=== PATIENT | female | born 2000 | race Two or more races ===

== ENCOUNTER 2019-03-22 12:53 | Observation (INO) | payer SELFPAY ==
[2019-03-22 14:21] LABS: BILIRUBIN,URINE NEGATIVE (NEG); CLARITY,URINE CLEAR; COLOR,URINE YELLOW; NITRITE,URINE NEGATIVE (NEG); PH,URINE 6.5; PROTEIN,URINE NEGATIVE (NEG-TRACE); UROBILINOGEN,URINE 0.2 mg/dL (0.2 mg/dL)
[2019-03-22 14:27] LABS: BACTERIA,URINE FEW /HPF (0-FEW); RBC,URINE 0 /HPF (0-2); SQUAMOUS EPITHELIAL CELL,UR MOD /LPF
== END 2019-03-22 17:37 | disposition home or self-care (01) ==
LOC: 3 SO LND 12:53
PROVIDERS: ADMIT Obstetrics & Gynecology; ATTEND Obstetrics & Gynecology
DX: O26.893 Other specified pregnancy related conditions, third trimester (principal); R10.2 Pelvic and perineal pain; Z3A.39 39 weeks gestation of pregnancy
CPT/HCPCS: 81001; 87086; G0378; G0379

== ENCOUNTER 2019-03-28 18:15 | Inpatient (IN) | payer SELFPAY ==
[~2019-03-28] VITALS: Ht 157.5 cm; Wt 72.6 kg
[2019-03-28] MEDS ORDERED: LIDOCAINE 1% PF 30 ML VIAL. INJ PRN (18:30)
[2019-03-28] MEDS ORDERED: ACETAMINOPHEN 325 MG TABLET. PO PRN (18:30)
[2019-03-28] MEDS ORDERED: IBUPROFEN 400 MG TABLET. PO PRN (18:30)
[2019-03-28] MEDS ORDERED: ONDANSETRON PF 4 MG/2 ML VIAL. IV PRN (18:30)
[2019-03-28] MEDS ORDERED: TERBUTALINE 1 MG/ML VIAL. IV PRN (18:30)
[2019-03-28] MEDS ORDERED: OXYTOCIN 30 UNIT/500 ML PREMIX 500 ML IV PRN ×3 (18:30)
[2019-03-28] MEDS ORDERED: MAG HYDROX/ALUMINUM HYD/SIMETH 30 ML ORAL.SUSP PO PRN (18:30)
[2019-03-28] MEDS ORDERED: fentaNYL PF VIAL 100 MCG/2 ML VIAL IV PRN ×8 (18:30)
[2019-03-28] MEDS ORDERED: BUTORPHANOL 2 MG/ML VIAL. IV PRN ×2 (18:30)
[2019-03-28] MEDS ORDERED: NALBUPHINE 10 MG/ML AMPUL. IV PRN ×2 (18:30)
[2019-03-28] MEDS ORDERED: 0.9 % SODIUM CHLORIDE 10 ML DISP.SYRIN. IV PRN (18:30)
[2019-03-28] MEDS ORDERED: TERBUTALINE 1 MG/ML VIAL. SQ PRN (18:30)
[2019-03-28] MEDS ORDERED: CITRIC ACID/SODIUM CITRATE 30 ML SOLUTION. PO PRN (18:30)
[2019-03-28] MEDS ORDERED: ZOLPIDEM 5 MG TABLET. PO PRN (18:30)
[2019-03-28 18:46] LABS: BILIRUBIN,URINE NEGATIVE (NEG); CLARITY,URINE CLEAR; COLOR,URINE YELLOW; NITRITE,URINE NEGATIVE (NEG); PH,URINE 5.5; PROTEIN,URINE NEGATIVE (NEG-TRACE); UROBILINOGEN,URINE 0.2 mg/dL (0.2 mg/dL)
[2019-03-28 18:50] LABS: BACTERIA,URINE FEW /HPF (0-FEW); RBC,URINE OCC /HPF (0-2); SQUAMOUS EPITHELIAL CELL,UR MOD /LPF; WBC,URINE OCC /HPF (0-4)
[2019-03-28] MEDS ORDERED: DINOPROSTONE 10 MG SUPP.VAG VG ONE (19:00)
[2019-03-28] MEDS ORDERED: IV NORMAL SALINE 1000ML BAG 1,000 ML IV SCH (19:00)
[2019-03-28] MEDS: IV RINGERS,LACTATED 1000ML 1,000 ML IV SCH ×2 (19:33→22:43)
[2019-03-28 19:54] LABS: BASO % 0 % (0-3); EOS % 1 % (0-3); HEMATOCRIT 30.9 % (36.0-47.0); HEMOGLOBIN 10.3 g/dL (12.0-15.5); LYMPH # 1.8 x10^3/uL (1.0-4.8); LYMPH % 24 % (24-48); MEAN CORPUSCULAR HEMOGLOBIN 28 pg (25-35); MEAN CORPUSCULAR HGB CONC 33 g/dL (31-37); MEAN CORPUSCULAR VOLUME 84 fL (79-100); MONO # 0.7 x10^3/uL (0.0-1.1); MONO % 9 % (0-9); NEUT % 66 % (31-73); PLATELET COUNT 224 x10^3/uL (140-400); RED BLOOD COUNT 3.68 x10^6/uL (3.50-5.40); RED CELL DISTRIBUTION WIDTH 15.8 % (11.5-14.5); WHITE BLOOD COUNT 7.5 x10^3/uL (4.0-11.0)
[2019-03-28 20:29] VITALS: BP 130/74
[2019-03-28] MEDS ORDERED: diphenhydrAMINE HCL 25 MG CAPSULE PO PRN (20:45)
--- NOTE | 2019-03-29 02:10 | PDOC1 ---
OB - History Hx of Present Care: Good Care Ultrasounds: Normal mid trimester US Obstetrical Complications: None Medical Complications: None Past Family/Social History * Past Medical, Surgical, Family and Obstetric Histories reviewed from chart. Rubella: Immune RPR/VDRL: Negative GBS Status: Negative HBsAG: Negative OB - Chief Complaint & HPI Date of Admission: Date of Admission: Mar 28, 2019 at 18:15 Chief Complaint/History : 1 Para: 0 EGA: 40 Reason for admission: induction of labor Indication for induction: post dates Admission Nurse Assessment Rev: Yes OB - Admission Exam Physical Exam Vitals: VS - Last 72 Hours, by Label Date Time Temp Pulse Resp B/P (MAP) Pulse Ox O2 Delivery O2 Flow Rate FiO2 03/28/19 20:29 97.8 97 18 130/74 (92) Room Air 97.8 HEENT: Normal Heart: Regular Rate Lungs: Clear Abdomen: Gravid, Non tender, Soft Extremities: Edema Reflexes: Normal Cervical Dilatation: 1cm Effacement: 50% Station: -3 Membranes: Intact Heart Rate: Normal Accelerations: Accelerations Present Decelerations: No decelerations Contractions on Admission: None Text A: 40 wks IUP IOL secondary post dates P: Admit cervidil induction, then pitocin in am. KIM PALOMO Jr, MD Mar 29, 2019 02:10
[2019-03-29] MEDS ORDERED: CITRIC ACID/SODIUM CITRATE 30 ML SOLUTION. PO ONE (02:30)
[2019-03-29] MEDS: IV RINGERS,LACTATED 1000ML 1,000 ML IV SCH ×3 (09:57→22:50)
[2019-03-29] MEDS ORDERED: OXYTOCIN PREMIX 30 UNIT/500 ML NS BAG. IV ONE (16:00)
--- NOTE | 2019-03-29 17:42 | PDOC ---
OB Progress Note Date of Service 03/29/19 Time of Evaluation 1740 Notes Pt. feeling anxiety. Counseled on induction process. Lab Laboratory Tests Test 03/28/19 18:30 03/28/19 19:35 Urine Collection Type Unknown Urine Color Yellow Urine Clarity Clear Urine pH 5.5 Urine Specific [place] 1.010 Urine Protein Negative mg/dL (NEG-TRACE) Urine Glucose (UA) Negative mg/dL (NEG) Urine Ketones (Stick) Negative mg/dL (NEG) Urine Blood Negative (NEG) Urine Nitrite Negative (NEG) Urine Bilirubin Negative (NEG) Urine Urobilinogen Dipstick 0.2 mg/dL (0.2 mg/dL) Urine Leukocyte Esterase Negative (NEG) Urine RBC Occ /HPF (0-2) Urine WBC Occ /HPF (0-4) Urine Squamous Epithelial Cells Mod /LPF Urine Bacteria Few /HPF (0-FEW) Urine Mucus Slight /LPF White Blood Count 7.5 x10^3/uL (4.0-11.0) Red Blood Count 3.68 x10^6/uL (3.50-5.40) Hemoglobin 10.3 g/dL (12.0-15.5) Hematocrit 30.9 % (36.0-47.0) Mean Corpuscular Volume 84 fL (79-100) Mean Corpuscular Hemoglobin 28 pg (25-35) Mean Corpuscular Hemoglobin Concent 33 g/dL (31-37) Red Cell Distribution Width 15.8 % (11.5-14.5) Platelet Count 224 x10^3/uL (140-400) Neutrophils (%) (Auto) 66 % (31-73) Lymphocytes (%) (Auto) 24 % (24-48) Monocytes (%) (Auto) 9 % (0-9) Eosinophils (%) (Auto) 1 % (0-3) Basophils (%) (Auto) 0 % (0-3) Neutrophils # (Auto) 5.0 x10^3/uL (1.8-7.7) Lymphocytes # (Auto) 1.8 x10^3/uL (1.0-4.8) Monocytes # (Auto) 0.7 x10^3/uL (0.0-1.1) Eosinophils # (Auto) 0.0 x10^3/uL (0.0-0.7) Basophils # (Auto) 0.0 x10^3/uL (0.0-0.2) Treponema pallidum Antibody Nonreactive (Nonreactive) Laboratory Tests Test 03/28/19 18:30 03/28/19 19:35 Urine Collection Type Unknown Urine Color Yellow Urine Clarity Clear Urine pH 5.5 Urine Specific [place] 1.010 Urine Protein Negative mg/dL (NEG-TRACE) Urine Glucose (UA) Negative mg/dL (NEG) Urine Ketones (Stick) Negative mg/dL (NEG) Urine Blood Negative (NEG) Urine Nitrite Negative (NEG) Urine Bilirubin Negative (NEG) Urine Urobilinogen Dipstick 0.2 mg/dL (0.2 mg/dL) Urine Leukocyte Esterase Negative (NEG) Urine RBC Occ /HPF (0-2) Urine WBC Occ /HPF (0-4) Urine Squamous Epithelial Cells Mod /LPF Urine Bacteria Few /HPF (0-FEW) Urine Mucus Slight /LPF White Blood Count 7.5 x10^3/uL (4.0-11.0) Red Blood Count 3.68 x10^6/uL (3.50-5.40) Hemoglobin 10.3 g/dL (12.0-15.5) Hematocrit 30.9 % (36.0-47.0) Mean Corpuscular Volume 84 fL (79-100) Mean Corpuscular Hemoglobin 28 pg (25-35) Mean Corpuscular Hemoglobin Concent 33 g/dL (31-37) Red Cell Distribution Width 15.8 % (11.5-14.5) Platelet Count 224 x10^3/uL (140-400) Neutrophils (%) (Auto) 66 % (31-73) Lymphocytes (%) (Auto) 24 % (24-48) Monocytes (%) (Auto) 9 % (0-9) Eosinophils (%) (Auto) 1 % (0-3) Basophils (%) (Auto) 0 % (0-3) Neutrophils # (Auto) 5.0 x10^3/uL (1.8-7.7) Lymphocytes # (Auto) 1.8 x10^3/uL (1.0-4.8) Monocytes # (Auto) 0.7 x10^3/uL (0.0-1.1) Eosinophils # (Auto) 0.0 x10^3/uL (0.0-0.7) Basophils # (Auto) 0.0 x10^3/uL (0.0-0.2) Treponema pallidum Antibody Nonreactive (Nonreactive) Medications Current Medications Sodium Chloride (Normal Saline Flush) 3 ml QSHIFT PRN IV AFTER MEDS AND BLOOD DRAWS; Start 03/28/19 at 18:30 Ringer's Solution 1,000 ml @ 125 mls/hr Q8H IV Last administered on 03/29/19at 15:37; Start 03/28/19 at 19:00 Sodium Chloride 1,000 ml @ 125 mls/hr Q8H IV ; Start 03/28/19 at 19:00; Status Cancel Nalbuphine HCl (Nubain) 5 mg PRN Q1HR PRN IV Mild to moderate labor pain; Start 03/28/19 at 18:30; Status Cancel Nalbuphine HCl (Nubain) 10 mg PRN Q1HR PRN IV Severe labor pain; Start 03/28/19 at 18:30 Butorphanol Tartrate (Stadol) 1 mg PRN Q1HR PRN IV mild to moderate labor pain; Start 03/28/19 at 18:30; Status Cancel Butorphanol Tartrate (Stadol) 2 mg PRN Q1HR PRN IV Severe labor pain; Start 03/28/19 at 18:30; Status Cancel Fentanyl Citrate (Fentanyl 2ml Vial) 50 mcg PRN Q30MIN PRN IV Mild to moderate pain; Start 03/28/19 at 18:30; Status Cancel Fentanyl Citrate (Fentanyl 2ml Vial) 100 mcg PRN Q30MIN PRN IV Severe pain; Start 03/28/19 at 18:30; Status Cancel Fentanyl Citrate (Fentanyl 2ml Vial) 50 mcg PRN Q10MIN PRN IV Labor pain; Start 03/28/19 at 18:30; Status Cancel Fentanyl Citrate (Fentanyl 2ml Vial) 50 mcg PRN Q20MIN PRN IV Labor pain; Start 03/28/19 at 18:30; Status Cancel Fentanyl Citrate (Fentanyl 2ml Vial) 75 mcg PRN Q10MIN PRN IV Labor pain; Start 03/28/19 at 18:30; Status Cancel Fentanyl Citrate (Fentanyl 2ml Vial) 75 mcg PRN Q20MIN PRN IV Labor pain; Start 03/28/19 at 18:30; Status Cancel Fentanyl Citrate (Fentanyl 2ml Vial) 100 mcg PRN Q10MIN PRN IV Labor pain; Start 03/28/19 at 18:30; Status Cancel Fentanyl Citrate (Fentanyl 2ml Vial) 100 mcg PRN Q20MIN PRN IV Labor pain; Sta rt 03/28/19 at 18:30; Status Cancel Acetaminophen (Tylenol) 650 mg PRN Q6HRS PRN PO MILD PAIN / TEMP; Start 03/28/19 at 18:30 Ondansetron HCl (Zofran) 4 mg PRN Q4HRS PRN IV NAUSEA/VOMITING; Start 03/28/19 at 18:30 Al Hydroxide/Mg Hydroxide (Mylanta Plus Xs) 30 ml PRN Q4HRS PRN PO HEARTBURN / GAS; Start 03/28/19 at 18:30 Citric Acid/ Sodium Citrate (Bicitra) 30 ml 1X PRN PRN PO DYSPEPSIA; Start 03/28/19 at 18:30; Stop 03/29/19 at 18:29 Zolpidem Tartrate (Ambien) 5 mg PRN QHS PRN PO INSOMNIA; Start 03/28/19 at 18:30; Status Cancel Terbutaline Sulfate (Brethine) 0.25 mg 1X PRN PRN SQ SEE COMMENTS; Start 03/28/19 at 18:30; Stop 03/29/19 at 18:29 Terbutaline Sulfate (Brethine) 0.25 mg 1X PRN PRN IV SEE COMMENTS; Start 03/28/19 at 18:30; Stop 03/29/19 at 18:29; Status UNV Lidocaine HCl (Xylocaine 1% Pf 30ml Vial) 30 ml 1X PRN PRN INJ SEE COMMENTS; Start 03/28/19 at 18:30; Stop 03/30/19 at 18:29 Oxytocin/Sodium Chloride 500 ml @ 0 mls/hr CONT PRN IV SEE I/O RECORD; Start 03/28/19 at 18:30; Status Cancel Oxytocin/Sodium Chloride 500 ml @ 0 mls/hr CONT PRN IV SEE I/O RECORD; Start 03/28/19 at 18:30 Oxytocin/Sodium Chloride 500 ml @ 0 mls/hr CONT PRN PRN IV Post delivery bleeding; Start 03/28/19 at 18:30 Ibuprofen (Motrin) 800 mg PRN Q6HRS PRN PO PAIN; Start 03/28/19 at 18:30 Dinoprostone (Cervidil) 10 mg 1X ONCE VG Last administered on 03/28/19at 19:33; Start 03/28/19 at 19:00; Stop 03/28/19 at 19:01; Status DC Diphenhydramine HCl (Benadryl) 25 mg PRN QHS PRN PO INSOMNIA; Start 03/28/19 at 20:45 Cefazolin Sodium/ Dextrose 50 ml @ 100 mls/hr 1X ONCE IV ; Start 03/29/19 at 03:00; Stop 03/29/19 at 03:29; Status DC Citric Acid/ Sodium Citrate (Bicitra) 30 ml 1X ONCE PO ; Start 03/29/19 at 02:30; Stop 03/29/19 at 02:31; Status DC Exam Pelvic: cvx 70/-3 Assessment 40 wks IUP IOL Plan of Care: Continue current Tx, Mgmt (Will allow patient to eat and rest. Place 2nd cervidil overnight, then pitocin in am.) KIM PALOMO Jr, MD Mar 29, 2019 17:42
[2019-03-29] MEDS ORDERED: ceFAZolin 2GM PREMIX 2 GM/50 ML BAG IV ONE (19:00)
[2019-03-29] MEDS ORDERED: DINOPROSTONE 10 MG SUPP.VAG VG ONE (19:00)
[2019-03-30] MEDS: IV RINGERS,LACTATED 1000ML 1,000 ML IV SCH ×2 (06:08→19:00)
[2019-03-30] MEDS ORDERED: IV RINGERS,LACTATED 1000ML 1,000 ML IV SCH (09:16)
[2019-03-30] MEDS ORDERED: fentaNYL PF VIAL 100 MCG/2 ML VIAL EPID PRN (09:30)
[2019-03-30] MEDS ORDERED: ONDANSETRON PF 4 MG/2 ML VIAL. IV PRN (09:30)
[2019-03-30] MEDS ORDERED: NALOXONE 0.4 MG/ML VIAL. IV PRN (09:30)
[2019-03-30] MEDS ORDERED: ROPIVacaine 0.2% IN 0.9%NACL PF 40 MG/20 ML DISP.SYRIN. EPID PRN (09:30)
[2019-03-30] MEDS ORDERED: ePHEDrine PF IN SALINE 50 MG/10 ML SYRINGE. IV PRN (09:30)
[2019-03-30] MEDS ORDERED: BUPIVACAINE MPF 0.25% 30 ML VIAL. ONE (09:49)
[2019-03-30] MEDS: L&D EPIDURAL SYRINGE 50 ML EPID PRN ×2 (09:54→13:53)
--- NOTE | 2019-03-30 15:44 | PDOC ---
VAGINAL DELIVERY DATE DATE: 03/30/19 TIME: 15:43 : 1 Para: 1 EGA: 40 VAGINAL DELIVERY: VTX VACCUM ASSISTED: No PLACENTA: Spontaneous 8/9 SEX: Male WEIGHT Weight [ 3580 gm] Nuchal Cord: No Amniotic Fluid: Clear PAIN: Epidural EPISIOTOMY: Yes (2nd degree midline episiotomy) EXTENSION: No REPAIRED WITH 2-0 vicryl EBL 300 ml COMPLICATIONS none CONDITION pt. stable Signs of Intrauterine Infectio: None Shoulder Dystocia: No KIM PALOMO Jr, MD Mar 30, 2019 15:44
[2019-03-30] MEDS ORDERED: ZOLPIDEM 5 MG TABLET. PO PRN (15:45)
[2019-03-30] MEDS ORDERED: OXYTOCIN 30 UNIT/500 ML PREMIX 500 ML IV PRN (15:45)
[2019-03-30] MEDS ORDERED: MAG HYDROX/ALUMINUM HYD/SIMETH 30 ML ORAL.SUSP PO PRN (15:45)
[2019-03-30] MEDS ORDERED: HYDROCORTISONE 1% TOPICAL OINTMENT 30GM TUBE. TP PRN (15:45)
[2019-03-30] MEDS ORDERED: MAGNESIUM HYDROXIDE 2,400 MG/30 ML ORAL.SUSP. PO PRN (15:45)
[2019-03-30] MEDS ORDERED: MMR per PROTOCOL. MC PRN (15:45)
[2019-03-30] MEDS ORDERED: PHENYLEPH/MINERAL OIL/PETROLAT RECTAL OINTMENT TUBE. RC PRN (15:45)
[2019-03-30] MEDS ORDERED: SIMETHICONE 80 MG TAB.CHEW PO PRN (15:45)
[2019-03-30] MEDS ORDERED: 0.9 % SODIUM CHLORIDE 10 ML DISP.SYRIN. IV PRN (15:45)
[2019-03-30] MEDS ORDERED: diphenhydrAMINE HCL 25 MG CAPSULE PO PRN (15:45)
[2019-03-30] MEDS ORDERED: ACETAMINOPHEN 325 MG TABLET. PO PRN (15:45)
[2019-03-30] MEDS: IBUPROFEN 400 MG TABLET. PO PRN (16:31)
[2019-03-30] MEDS: BENZOCAINE 20% TOPICAL AEROSOL SPRAY 57GM CAN. TP PRN (16:32)
[2019-03-30 18:47] VITALS: BP 126/70
[2019-03-30 20:00] VITALS: BP 137/69
[2019-03-30] MEDS: oxyCODONE/APAP 5/325 1 TAB TABLET PO PRN ×2 (21:22→23:48)
[2019-03-31] MEDS: IV RINGERS,LACTATED 1000ML 1,000 ML IV SCH ×3 (03:00→19:00)
[2019-03-31 06:30] VITALS: BP 123/81
--- NOTE | 2019-03-31 07:05 | NUR ---
Miranda Catheter discontinued@[id number]
[2019-03-31 07:25] LABS: BASO # 0.1 x10^3/uL (0.0-0.2); BASO % 1 % (0-3); EOS # 0.1 x10^3/uL (0.0-0.7); EOS % 1 % (0-3); HEMATOCRIT 35.6 % (36.0-47.0); HEMOGLOBIN 11.5 g/dL (12.0-15.5); LYMPH # 2.5 x10^3/uL (1.0-4.8); LYMPH % 22 % (24-48); MEAN CORPUSCULAR HEMOGLOBIN 27 pg (25-35); MEAN CORPUSCULAR HGB CONC 32 g/dL (31-37); MEAN CORPUSCULAR VOLUME 84 fL (79-100); MONO % 9 % (0-9); NEUT # 7.9 x10^3/uL (1.8-7.7); NEUT % 68 % (31-73); PLATELET COUNT 228 x10^3/uL (140-400); RED BLOOD COUNT 4.25 x10^6/uL (3.50-5.40); RED CELL DISTRIBUTION WIDTH 15.9 % (11.5-14.5); WHITE BLOOD COUNT 11.6 x10^3/uL (4.0-11.0)
[2019-03-31] MEDS: DOCUSATE SODIUM 100 MG CAPSULE. PO PRN ×2 (07:30→23:49)
[2019-03-31] MEDS: oxyCODONE/APAP 5/325 1 TAB TABLET PO PRN ×4 (07:31→23:50)
[2019-03-31] MEDS: IBUPROFEN 400 MG TABLET. PO PRN ×3 (07:32→23:49)
[2019-03-31] MEDS ORDERED: FERROUS SULFATE 325 MG TABLET. PO SCH (08:00)
[2019-03-31 10:43] VITALS: BP 131/63
--- NOTE | 2019-03-31 12:46 | PDOC ---
OB Progress Note Date of Service 03/31/19 Time of Evaluation 1245 Notes Pt. feeling well except vulvar tenderness from delivery. Lab Laboratory Tests Test 03/31/19 07:10 White Blood Count 11.6 x10^3/uL (4.0-11.0) Red Blood Count 4.25 x10^6/uL (3.50-5.40) Hemoglobin 11.5 g/dL (12.0-15.5) Hematocrit 35.6 % (36.0-47.0) Mean Corpuscular Volume 84 fL (79-100) Mean Corpuscular Hemoglobin 27 pg (25-35) Mean Corpuscular Hemoglobin Concent 32 g/dL (31-37) Red Cell Distribution Width 15.9 % (11.5-14.5) Platelet Count 228 x10^3/uL (140-400) Neutrophils (%) (Auto) 68 % (31-73) Lymphocytes (%) (Auto) 22 % (24-48) Monocytes (%) (Auto) 9 % (0-9) Eosinophils (%) (Auto) 1 % (0-3) Basophils (%) (Auto) 1 % (0-3) Neutrophils # (Auto) 7.9 x10^3/uL (1.8-7.7) Lymphocytes # (Auto) 2.5 x10^3/uL (1.0-4.8) Monocytes # (Auto) 1.0 x10^3/uL (0.0-1.1) Eosinophils # (Auto) 0.1 x10^3/uL (0.0-0.7) Basophils # (Auto) 0.1 x10^3/uL (0.0-0.2) Laboratory Tests Test 03/31/19 07:10 White Blood Count 11.6 x10^3/uL (4.0-11.0) Red Blood Count 4.25 x10^6/uL (3.50-5.40) Hemoglobin 11.5 g/dL (12.0-15.5) Hematocrit 35.6 % (36.0-47.0) Mean Corpuscular Volume 84 fL (79-100) Mean Corpuscular Hemoglobin 27 pg (25-35) Mean Corpuscular Hemoglobin Concent 32 g/dL (31-37) Red Cell Distribution Width 15.9 % (11.5-14.5) Platelet Count 228 x10^3/uL (140-400) Neutrophils (%) (Auto) 68 % (31-73) Lymphocytes (%) (Auto) 22 % (24-48) Monocytes (%) (Auto) 9 % (0-9) Eosinophils (%) (Auto) 1 % (0-3) Basophils (%) (Auto) 1 % (0-3) Neutrophils # (Auto) 7.9 x10^3/uL (1.8-7.7) Lymphocytes # (Auto) 2.5 x10^3/uL (1.0-4.8) Monocytes # (Auto) 1.0 x10^3/uL (0.0-1.1) Eosinophils # (Auto) 0.1 x10^3/uL (0.0-0.7) Basophils # (Auto) 0.1 x10^3/uL (0.0-0.2) Medications Current Medications Sodium Chloride (Normal Saline Flush) 3 ml QSHIFT PRN IV AFTER MEDS AND BLOOD DRAWS; Start 03/28/19 at 18:30 Ringer's Solution 1,000 ml @ 125 mls/hr Q8H IV Last administered on 03/30/19at 06:08; Start 03/28/19 at 19:00 Sodium Chloride 1,000 ml @ 125 mls/hr Q8H IV ; Start 03/28/19 at 19:00; Status Cancel Nalbuphine HCl (Nubain) 5 mg PRN Q1HR PRN IV Mild to moderate labor pain; Start 03/28/19 at 18:30; Status Cancel Nalbuphine HCl (Nubain) 10 mg PRN Q1HR PRN IV Severe labor pain; Start 03/28/19 at 18:30 Butorphanol Tartrate (Stadol) 1 mg PRN Q1HR PRN IV mild to moderate labor pain; Start 03/28/19 at 18:30; Status Cancel Butorphanol Tartrate (Stadol) 2 mg PRN Q1HR PRN IV Severe labor pain; Start 03/28/19 at 18:30; Status Cancel Fentanyl Citrate (Fentanyl 2ml Vial) 50 mcg PRN Q30MIN PRN IV Mild to moderate pain; Start 03/28/19 at 18:30; Status Cancel Fentanyl Citrate (Fentanyl 2ml Vial) 100 mcg PRN Q30MIN PRN IV Severe pain; Start 03/28/19 at 18:30; Status Cancel Fentanyl Citrate (Fentanyl 2ml Vial) 50 mcg PRN Q10MIN PRN IV Labor pain; Start 03/28/19 at 18:30; Status Cancel Fentanyl Citrate (Fentanyl 2ml Vial) 50 mcg PRN Q20MIN PRN IV Labor pain; Start 03/28/19 at 18:30; Status Cancel Fentanyl Citrate (Fentanyl 2ml Vial) 75 mcg PRN Q10MIN PRN IV Labor pain; Start 03/28/19 at 18:30; Status Cancel Fentanyl Citrate (Fentanyl 2ml Vial) 75 mcg PRN Q20MIN PRN IV Labor pain; Start 03/28/19 at 18:30; Status Cancel Fentanyl Citrate (Fentanyl 2ml Vial) 100 mcg PRN Q10MIN PRN IV Labor pain; Start 03/28/19 at 18:30; Status Cancel Fentanyl Citrate (Fentanyl 2ml Vial) 100 mcg PRN Q20MIN PRN IV Labor pain; Start 03/28/19 at 18:30; Status Cancel Acetaminophen (Tylenol) 650 mg PRN Q6HRS PRN PO MILD PAIN / TEMP; Start 03/28/19 at 18:30 Ondansetron HCl (Zofran) 4 mg PRN Q4HRS PRN IV NAUSEA/VOMITING; Start 03/28/19 at 18:30 Al Hydroxide/Mg Hydroxide (Mylanta Plus Xs) 30 ml PRN Q4HRS PRN PO HEARTBURN / GAS; Start 03/28/19 at 18:30 Citric Acid/ Sodium Citrate (Bicitra) 30 ml 1X PRN PRN PO DYSPEPSIA; Start 03/28/19 at 18:30; Stop 03/29/19 at 18:29; Status DC Zolpidem Tartrate (Ambien) 5 mg PRN QHS PRN PO INSOMNIA; Start 03/28/19 at 18:30; Status Cancel Terbutaline Sulfate (Brethine) 0.25 mg 1X PRN PRN SQ SEE COMMENTS; Start 03/28/19 at 18:30; Stop 03/29/19 at 18:29; Status DC Terbutaline Sulfate (Brethine) 0.25 mg 1X PRN PRN IV SEE COMMENTS; Start 03/28/19 at 18:30; Stop 03/29/19 at 18:29; Status UNV Lidocaine HCl (Xylocaine 1% Pf 30ml Vial) 30 ml 1X PRN PRN INJ SEE COMMENTS Last administered on 03/30/19at 16:32; Start 03/28/19 at 18:30; Stop 03/30/19 at 18:29; Status DC Oxytocin/Sodium Chloride 500 ml @ 0 mls/hr CONT PRN IV SEE I/O RECORD; Start 03/28/19 at 18:30; Status Cancel Oxytocin/Sodium Chloride 500 ml @ 0 mls/hr CONT PRN IV SEE I/O RECORD Last administered on 03/30/19at 06:08; Start 03/28/19 at 18:30 Oxytocin/Sodium Chloride 500 ml @ 0 mls/hr CONT PRN PRN IV Post delivery bleeding; Start 03/28/19 at 18:30 Ibuprofen (Motrin) 800 mg PRN Q6HRS PRN PO PAIN; Start 03/28/19 at 18:30; Stop 03/30/19 at 17:14; Status DC Dinoprostone (Cervidil) 10 mg 1X ONCE VG Last administered on 03/28/19at 19:33; Start 03/28/19 at 19:00; Stop 03/28/19 at 19:01; Status DC Diphenhydramine HCl (Benadryl) 25 mg PRN QHS PRN PO INSOMNIA; Start 03/28/19 at 20:45 Cefazolin Sodium/ Dextrose 50 ml @ 100 mls/hr 1X ONCE IV ; Start 03/29/19 at 03:00; Stop 03/29/19 at 03:29; Status DC Citric Acid/ Sodium Citrate (Bicitra) 30 ml 1X ONCE PO ; Start 03/29/19 at 02:30; Stop 03/29/19 at 02:31; Status DC Dinoprostone (Cervidil) 10 mg 1X ONCE VG Last administered on 03/29/19at 21:37; Start 03/29/19 at 19:00; Stop 03/29/19 at 19:01; Status DC Ringer's Solution 1,000 ml @ 1,000 mls/hr Q1H IV Last administered on 03/30/19at 09:57; Start 03/30/19 at 09:16; Stop 03/30/19 at 10:15; Status DC Ephedrine Sulfate (ePHEDrine PF IN SALINE SYRINGE) 10 mg PRN Q2MIN PRN IV IF SBP<90; Start 03/30/19 at 09:30 Naloxone HCl (Narcan) 0.4 mg PRN Q1MIN PRN IV SEE COMMENTS; Start 03/30/19 at 09:30 Fentanyl Citrate (Fentanyl 2ml Vial) 100 mcg PRN 1X PRN EPID FOR ANESTHESIA Last administered on 03/30/19at 09:52; Start 03/30/19 at 09:30; Stop 03/31/19 at 09:29; Status DC Ropivacaine/ Fentanyl/NS 50 ml @ 14 mls/hr CONT PRN EPID PAIN Last administered on 03/30/19at 13:53; Start 03/30/19 at 09:17 Ondansetron HCl (Zofran) 4 mg PRN Q6HRS PRN IV NAUSEA/VOMITING; Start 03/30/19 at 09:30 Ropivacaine/ Sodium Chloride (ROPIVacaine 0.2% - 0.9%NACL PF) 40 mg PRN 1X PRN EPID SEE COMMENTS; Start 03/30/19 at 09:30 Bupivacaine HCl (Sensorcaine Mpf 0.25%) 30 ml STK-MED ONCE .ROUTE ; Start 03/30/19 at 09:49; Stop 03/30/19 at 09:49; Status DC Cefazolin Sodium/ Dextrose (Ancef 2gm Premix) 2 gm STK-MED ONCE IV ; Start 03/29/19 at 19:00; Stop 03/30/19 at 12:32; Status DC Oxytocin/Sodium Chloride (Oxytocin Premix Infusion) 30 unit STK-MED ONCE IV ; Start 03/29/19 at 16:00; Stop 03/30/19 at 12:35; Status DC Sodium Chloride (Normal Saline Flush) 10 ml QSHIFT PRN IV AFTER MEDS AND BLOOD DRAWS; Start 03/30/19 at 15:45 Oxytocin/Sodium Chloride 500 ml @ 62.5 mls/hr CONT PRN IV SEE I/O RECORD; Start 03/30/19 at 15:45; Stop 03/30/19 at 23:44; Status DC Acetaminophen (Tylenol) 650 mg PRN Q6HRS PRN PO MILD PAIN / TEMP; Start 03/30/19 at 15:45 Ibuprofen (Motrin) 800 mg PRN Q8HRS PRN PO INFLAMMATION/PAIN PREVENTION Last administered on 03/31/19at 07:40; Start 03/30/19 at 15:45 Docusate Sodium (Colace) 100 mg PRN BID PRN PO CONSTIPATION Last administered on 03/31/19at 07:40; Start 03/30/19 at 15:45 Magnesium Hydroxide (Milk Of Magnesia) 2,400 mg PRN DAILY PRN PO CONSTIPATION; Start 03/30/19 at 15:45 Al Hydroxide/Mg Hydroxide (Mylanta Plus Xs) 30 ml PRN Q4HRS PRN PO HEARTBURN / GAS; Start 03/30/19 at 15:45 Simethicone (Gas-X) 80 mg PRN AFTMEALHC PRN PO GAS / BLOATING; Start 03/30/19 at 15:45 Diphenhydramine HCl (Benadryl) 25 mg PRN Q6HRS PRN PO ITCHING; Start 03/30/19 at 15:45 Benzocaine (Americaine) 1 spray PRN QID PRN TP TOPICAL PAIN Last administered on 03/30/19at 16:32; Start 03/30/19 at 15:45 Phenyleph/Shark Oil/Min Oil/Petrol (Preparation H) 1 dionne PRN QID PRN RC RECTAL PAIN; Start 03/30/19 at 15:45 Hydrocortisone (Cortaid) 1 dionne PRN QID PRN TP PERINEAL PAIN; Start 03/30/19 at 15:45 Ferrous Sulfate (Feosol) 325 mg BIDWMEALS PO ; Start 03/31/19 at 08:00 Zolpidem Tartrate (Ambien) 5 mg PRN QHS PRN PO INSOMNIA, MAY REPEAT X1; Start 03/30/19 at 15:45 Info (Do NOT chart on this placeholder) 1 ea 1X PRN PRN MC SEE COMMENTS; Start 03/30/19 at 15:45 Info (Do NOT chart on this placeholder) 1 ea 1X PRN PRN MC SEE COMMENTS; Start 03/30/19 at 15:45 Oxycodone/ Acetaminophen (Percocet 5/325) 2 tab PRN Q4HRS PRN PO MODERATE PAIN, SEVERE PAIN Last administered on 03/31/19at 07:40; Start 03/30/19 at 15:45 Exam Abd: soft, mild tenderness, fundus firm Assessment PPD#1 s/p Plan of Care: Continue current Tx, Mgmt KIM PALOMO Jr, MD Mar 31, 2019 12:46
[2019-03-31 14:45] VITALS: BP 105/53
[2019-03-31 18:14] VITALS: BP 120/67
[2019-03-31 20:40] VITALS: BP 131/81
[2019-04-01 04:15] VITALS: BP 101/63
[2019-04-01] MEDS: IBUPROFEN 400 MG TABLET. PO PRN ×2 (08:02→17:23)
--- NOTE | 2019-04-01 13:24 | PDOC3 ---
OB DISCHARGE SUMMARY DATE OF ADMISSION: 03/29/19 DATE OF DISCHARGE: 04/01/19 REASON FOR ADMISSION: Induction of labor INTRAPARTUM PROCEDURES: Spontanous Vag Deliv DISCHARGE DIAGNOSIS: Term Delivered DISCHARGE INFORMATION: Activity (ad manda), Diet (regular), Instructions (pelvic rest x 6 wks) HOSPITAL COURSE Term gestation delivered vaginally without complications. KIM PALOMO Jr, MD Apr 01, 2019 13:24
--- NOTE | 2019-04-01 13:30 | DISCH ---
DISCHARGE INSTRUCTIONS Condition on Discharge Condition on Discharge: Stable Activity After Discharge Activity Instructions for Disc: Activity as tolerated Lifting Instructions after Dis: No heavy lifting Driving Instructions after Dis: Do not drive today Diet after Discharge Diet after Discharge: Regular Contacting the [facility] after DC Call your doctor for: Concerns you may have Follow-Up Follow up with: Dr. Lobo in 6 wks. KIM LOBO Jr, MD Apr 01, 2019 13:30
[2019-04-01] MEDS ORDERED: IBUP-1027 PO (13:31)
[2019-04-01] MEDS: BENZOCAINE 20% TOPICAL AEROSOL SPRAY 57GM CAN. TP PRN (13:55)
[2019-04-01 13:58] VITALS: BP 108/63
== END 2019-04-01 17:27 | disposition home or self-care (01) | DRG 807 ==
LOC: 3 SO LND 18:15 → 3 NORTH 03-30 17:13
PROVIDERS: ADMIT Obstetrics & Gynecology; ATTEND Obstetrics & Gynecology
PROC: 10E0XZZ Delivery of Products of Conception, External Approach (ICD-10-PCS; principal; 2019-03-30)
PROC: 0W8NXZZ Division of Female Perineum, External Approach (ICD-10-PCS; 2019-03-30)
PROC: 3E033VJ Introduction of Other Hormone into Peripheral Vein, Percutaneous Approach (ICD-10-PCS; 2019-03-30)
PROC: 3E0R3BZ Introduction of Anesthetic Agent into Spinal Canal, Percutaneous Approach (ICD-10-PCS; 2019-03-30)
PROC: 00HU33Z Insertion of Infusion Device into Spinal Canal, Percutaneous Approach (ICD-10-PCS; 2019-03-30)
DX: O48.0 Post-term pregnancy (principal); Z37.0 Single live birth; Z3A.40 40 weeks gestation of pregnancy
CPT/HCPCS: 36415; 81001; 85025; 86592; 86850; 86900; 86901; J0696; J2590; J3010; J7120; G0378